=== PATIENT | female | born 1960 | race Caucasian/White ===

== ENCOUNTER 2021-05-29 15:13 | Emergency (ER) | payer OTHER ==
[~2021-05-29] VITALS: Ht 160 cm; Wt 85.9 kg
[2021-05-29 16:09] LABS: BASO # 0.04 (0.02-0.10); EOS # 0.17 (0.04-0.40); EOS % 2.1 % (1.0-5.0); HEMATOCRIT 46.6 % (37.0-47.0); HEMOGLOBIN 15.5 g/dL (12.5-16.0); LYMPH# 3.07 (1.50-4.00); MEAN CELL VOLUME 86 fl (78-100); MEAN CORPUSCULAR HEMOGLOBIN 29 pg (27-31); MEAN CORPUSCULAR HGB CONC 33 g/dL (33-37); MEAN PLATELET VOLUME 10.5 fl (7.4-10.4); MONO # 0.64 (0.20-0.80); NEU # 4.33 (1.40-6.50); PLATELET COUNT 331 K/mm3 (130-400); RED BLOOD COUNT 5.42 M/mm3 (4.10-5.30); RED CELL DISTRIBUTION WIDTH 12.9 % (11.5-14.5); WHITE BLOOD COUNT 8.3 K/mm3 (4.8-10.8)
[2021-05-29 16:18] LABS: ALBUMIN 3.9 g/dL (3.5-5.0); POTASSIUM 3.9 mmol/L (3.5-5.1); SODIUM 138 mmol/L (136-145)
[2021-05-29 16:20] LABS: CALCIUM 9.9 mg/dL (8.3-10.5)
[2021-05-29 16:21] LABS: GLUCOSE 308 mg/dL (65-105); TOTAL PROTEIN 7.2 g/dL (6.4-8.3)
[2021-05-29 16:22] LABS: CARBON DIOXIDE 20 mmol/L (22-29); TOTAL BILIRUBIN 0.6 mg/dL (0.2-1.2)
[2021-05-29 16:26] LABS: AST-SGOT 24 U/L (5-34)
[2021-05-29 16:27] LABS: ALT/SGPT 38 U/L (0-55)
[2021-05-29 16:28] LABS: LIPASE 54 U/L (8-78)
[2021-05-29 16:40] LABS: TROPONIN-I < 0.03 ng/mL (<0.030)
[2021-05-29] MEDS ORDERED: METOCLOPRAMIDE10 M5 PO (17:48)
[2021-05-29] MEDS ORDERED: GLUCOPHAGE PO (17:48)
[2021-05-29] MEDS ORDERED: LOSARTAN POTASS50 M1 PO (17:48)
[2021-05-29] MEDS ORDERED: GOOD NEIGHBOR P20 M1 PO (21:40)
[2021-05-29] MEDS ORDERED: METOPROLOL SUCC50 M1 PO (21:40)
[2021-05-29 21:52] VITALS: BP 151/90
== END 2021-05-29 21:52 | disposition home or self-care (01) ==
LOC: ED 15:13
PROVIDERS: Family Medicine
DX: F41.9 Anxiety disorder, unspecified (principal); E11.9 Type 2 diabetes mellitus without complications; K21.9 Gastro-esophageal reflux disease without esophagitis; I10 Essential (primary) hypertension; Z79.84 Long term (current) use of oral hypoglycemic drugs; Z79.899 Other long term (current) drug therapy
CPT/HCPCS: J0360; J2060; J3490

== ENCOUNTER → 2021-05-30 | Outpatient (CLI) | payer OTHER ==
[~2021-05-30] MED LIST: GLUCOPHAGE PO; GOOD NEIGHBOR P20 M1 PO; LOSARTAN POTASS50 M1 PO; METOCLOPRAMIDE10 M5 PO; METOPROLOL SUCC50 M1 PO
[2021-05-30 08:41] LABS: URINE APPEARANCE CLOUDY; URINE BILIRUBIN NEGATIVE (NEGATIVE); URINE BLOOD 50 ery/uL (NEGATIVE); URINE COLOR YELLOW; URINE GLUCOSE NEGATIVE (NEGATIVE); URINE KETONE NEGATIVE (NEGATIVE); URINE LEUKOCYTE ESTERASE 1+ (NEGATIVE); URINE NITRATE NEGATIVE (NEGATIVE); URINE PROTEIN(semi-quant) 3+ mg/dL (NEGATIVE); URINE UROBILINOGEN NORMAL (NORMAL)
[2021-05-30 08:42] LABS: URINE MUCUS PRESENT (NOT PRESENT)
== END ==
LOC: LAB 08:16
PROVIDERS: Family Medicine
DX: E11.69 Type 2 diabetes mellitus with other specified complication (principal); R14.0 Abdominal distension (gaseous)

== ENCOUNTER → 2021-06-01 | Outpatient (CLI) | payer OTHER | LOC: VAS 10:24 → RAD 11:00 | DX: I10 Essential (primary) hypertension (principal); I08.1 Rheumatic disorders of both mitral and tricuspid valves ==

== ENCOUNTER → 2021-06-03 | Outpatient (CLI) | payer OTHER | LOC: RAD 13:21 | DX: K80.20 Calculus of gallbladder without cholecystitis without obstruction (principal); R14.3 Flatulence ==

== ENCOUNTER → 2021-06-06 | Outpatient (CLI) | payer OTHER | LOC: RAD 06:53 | DX: K80.20 Calculus of gallbladder without cholecystitis without obstruction (principal) ==

== ENCOUNTER → 2021-07-06 | Outpatient (CLI) | payer OTHER ==
[2021-07-06 10:09] LABS: POTASSIUM 4.1 mmol/L (3.5-5.1)
[2021-07-06 10:11] LABS: CALCIUM 9.7 mg/dL (8.3-10.5)
== END ==
LOC: LAB 09:43
DX: R60.0 Localized edema (principal)

== ENCOUNTER → 2021-10-03 | Outpatient (CLI) | payer OTHER ==
[2021-10-03 09:50] LABS: POTASSIUM 4.2 mmol/L (3.5-5.1)
== END ==
LOC: LAB 09:19
PROVIDERS: Family Medicine
DX: E11.69 Type 2 diabetes mellitus with other specified complication (principal); I11.0 Hypertensive heart disease with heart failure; I50.42 Chronic combined systolic (congestive) and diastolic (congestive) heart failure

== ENCOUNTER → 2021-10-07 | Outpatient (CLI) | payer OTHER ==
[2021-10-07 09:32] LABS: ALBUMIN 4.3 g/dL (3.5-5.0)
[2021-10-07 09:35] LABS: TOTAL PROTEIN 7.6 g/dL (6.4-8.3)
[2021-10-07 09:37] LABS: TOTAL BILIRUBIN 0.6 mg/dL (0.2-1.2)
[2021-10-07 09:40] LABS: DIRECT BILIRUBIN 0.2 mg/dL (0.0-0.5)
== END ==
LOC: LAB 08:59
PROVIDERS: Family Medicine
DX: I50.42 Chronic combined systolic (congestive) and diastolic (congestive) heart failure (principal)

== ENCOUNTER 2021-11-07 12:59 | Outpatient (RCR) | payer OTHER | END 2021-11-21 | disposition home or self-care (01) | LOC: CARDREHAB | DX: I50.20 Unspecified systolic (congestive) heart failure (principal) ==

== ENCOUNTER 2021-11-22 12:56 | Outpatient (RCR) | payer OTHER | END 2021-12-19 | disposition home or self-care (01) | LOC: CARDREHAB | DX: Z48.812 Encounter for surgical aftercare following surgery on the circulatory system (principal); Z98.61 Coronary angioplasty status; I50.22 Chronic systolic (congestive) heart failure ==

== ENCOUNTER 2021-12-20 12:58 | Outpatient (RCR) | payer OTHER | END 2022-01-19 | disposition home or self-care (01) | LOC: CARDREHAB | DX: Z48.812 Encounter for surgical aftercare following surgery on the circulatory system (principal); I50.20 Unspecified systolic (congestive) heart failure; Z98.61 Coronary angioplasty status ==

== ENCOUNTER → 2022-01-18 | Outpatient (CLI) | payer OTHER | LOC: LAB 09:21 | DX: E11.69 Type 2 diabetes mellitus with other specified complication (principal); R14.0 Abdominal distension (gaseous) ==

== ENCOUNTER → 2022-05-25 | Outpatient (CLI) | payer OTHER | LOC: LAB 08:27 | DX: E11.69 Type 2 diabetes mellitus with other specified complication (principal); R14.0 Abdominal distension (gaseous) ==

== ENCOUNTER → 2022-06-27 | Outpatient (CLI) | payer OTHER | LOC: MAMMO 09:13 | DX: Z12.31 Encounter for screening mammogram for malignant neoplasm of breast (principal); Z12.11 Encounter for screening for malignant neoplasm of colon; Z00.00 Encounter for general adult medical examination without abnormal findings ==

== ENCOUNTER → 2023-07-04 | Outpatient (CLI) | payer OTHER ==
[~2023-07-04] MED LIST changes: +ALDACTONE 25MG25 MG PO; +ASPIRIN E.C. 8181 MG; +ATORVASTATIN CA80 MG PO; +BACTRIM DS TAB1 EACH PO; +CLOPIDOGREL75 M2 PO; +ENTRESTO 97 MG1 EACH PO; +FARXIGA10 MG PO; +METFORMIN HYD1000 MG PO
[2023-07-04 08:29] LABS: ALBUMIN 3.7 g/dL (3.4-4.8)
[2023-07-04 08:31] LABS: TOTAL PROTEIN 6.7 g/dL (6.2-8.1)
[2023-07-04 08:33] LABS: TOTAL BILIRUBIN 0.3 mg/dL (0.2-1.2)
[2023-07-04 08:37] LABS: DIRECT BILIRUBIN 0.1 mg/dL (0.0-0.5)
== END ==
LOC: LAB 07:55
PROVIDERS: Family Medicine
DX: Z23 Encounter for immunization (principal); Z00.01 Encounter for general adult medical examination with abnormal findings; Z12.31 Encounter for screening mammogram for malignant neoplasm of breast; E11.69 Type 2 diabetes mellitus with other specified complication; E78.2 Mixed hyperlipidemia; E87.6 Hypokalemia; R14.0 Abdominal distension (gaseous)

== ENCOUNTER → 2023-07-04 | Outpatient (CLI) | payer OTHER | LOC: MAMMO 07:56 | DX: Z12.31 Encounter for screening mammogram for malignant neoplasm of breast (principal) ==

== ENCOUNTER → 2024-03-20 | Outpatient (REF) | payer OTHER ==
[~2024-03-20] MED LIST changes: +COREG 25MG25 MG/TAB; +CYCLOBENZAPRINE10 M1 PO; +EZETIMIBE10 M1; +METFOMIN HYDRO850 MG; +NORCO 325 MG-51 TA1 PO; +TRULICITY0.75 MG/0.
[2024-05-14 14:13] LABS: CALCIUM 9.1 mg/dL (8.3-10.5)
== END ==
LOC: LAB 15:44
PROVIDERS: Family Medicine
DX: E11.69 Type 2 diabetes mellitus with other specified complication (principal); R14.0 Abdominal distension (gaseous)

== ENCOUNTER → 2024-04-15 | Day surgery (SDC) | payer OTHER ==
[~2024-04-15] MED LIST changes: +Iohexol 300 - 10 ML VIAL IV ONE; +Lidocaine PF 2% (20 MG/ML) 2 ML VIAL IJ ONE
== END ==
LOC: MSO 09:42
DX: M47.896 Other spondylosis, lumbar region (principal); M54.17 Radiculopathy, lumbosacral region; M51.36 Other intervertebral disc degeneration, lumbar region
CPT/HCPCS: J1100; Q9967

== ENCOUNTER → 2024-05-27 | Day surgery (SDC) | payer OTHER ==
[~2024-05-27] MED LIST changes: -Lidocaine PF 2% (20 MG/ML) 2 ML VIAL IJ ONE; +methylPREDNISolone acetate 80 MG/ML VIAL IJ ONE
== END ==
LOC: MSO 10:32
DX: M54.50 Low back pain, unspecified (principal); M53.3 Sacrococcygeal disorders, not elsewhere classified; M46.1 Sacroiliitis, not elsewhere classified
CPT/HCPCS: J0665; J1010; Q9967

== ENCOUNTER → 2024-07-04 | Outpatient (CLI) | payer OTHER ==
[~2024-07-04] MED LIST changes: -Iohexol 300 - 10 ML VIAL IV ONE; -methylPREDNISolone acetate 80 MG/ML VIAL IJ ONE
[2024-07-04 08:39] LABS: CALCIUM 9.1 mg/dL (8.3-10.5)
[2024-07-04 22:34] LABS: HEPATITIS C VIRUS ANTIBODY Negative (Nonreactiv)
== END ==
LOC: LAB 07:59
PROVIDERS: Family Medicine
DX: Z11.59 Encounter for screening for other viral diseases (principal); Z11.4 Encounter for screening for human immunodeficiency virus [HIV]; I11.0 Hypertensive heart disease with heart failure; I50.42 Chronic combined systolic (congestive) and diastolic (congestive) heart failure; E11.69 Type 2 diabetes mellitus with other specified complication; R14.0 Abdominal distension (gaseous); E78.2 Mixed hyperlipidemia; E87.6 Hypokalemia

== ENCOUNTER → 2024-07-17 | Outpatient (CLI) | payer OTHER | LOC: MAMMO 15:19 | DX: Z12.31 Encounter for screening mammogram for malignant neoplasm of breast (principal) ==

== ENCOUNTER 2024-08-27 08:00 | Outpatient (RCR) | payer OTHER | END 2024-09-20 | LOC: PT | DX: M54.16 Radiculopathy, lumbar region (principal) ==

== ENCOUNTER 2024-09-22 08:00 | Outpatient (RCR) | payer OTHER | END 2024-10-21 | disposition home or self-care (01) | LOC: PT | DX: M51.16 Intervertebral disc disorders with radiculopathy, lumbar region (principal) ==

== ENCOUNTER 2024-11-19 11:00 | Outpatient (RCR) | payer MEDICAID | END 2024-11-21 | LOC: PT | DX: M53.3 Sacrococcygeal disorders, not elsewhere classified (principal); M79.606 Pain in leg, unspecified ==